=== PATIENT | female | born 1955 | race Two or more races ===

== ENCOUNTER 2023-11-01 10:40 | Emergency (ER) | payer MEDICARE, OTHER ==
[~2023-11-01] VITALS: Ht 160 cm; Wt 67.6 kg
--- NOTE | 2023-11-01 11:00 | NUR ---
[facility] FROM [facility] FOR PSYCH EVALUATION. PATIENT SI WITH PLAN TO HARM SELF BY NOT EATING. A/O X 3, ABLE TO MAKE NEEDS KNOWN, TOLERATING WELL ON ROOM AIR. WILL CONTINUE TO MONITOR.
[2023-11-01 11:54] LABS: BASOPHILS % (AUTO) 0.3 % (0.0-2.0); EOSINOPHILS # (AUTO) 0.9 K/uL (0.0-0.7); EOSINOPHILS % (AUTO) 10.4 % (0.0-6.0); HEMATOCRIT 40 % (33-45); HEMOGLOBIN 13.2 g/dL (11.5-14.8); LYMPHOCYTES # (AUTO) 1.5 K/uL (0.8-4.8); LYMPHOCYTES % (AUTO) 17.2 % (20.0-44.0); MEAN CORPUSCULAR HEMOGLOBIN 31 PG (26.0-33.0); MEAN CORPUSCULAR HGB CONC 33 g/dl (31.0-36.0); MEAN CORPUSCULAR VOLUME 95 fL (82-100); MONOCYTES # (AUTO) 0.6 K/uL (0.1-1.30); MONOCYTES % (AUTO) 6.9 % (2.0-12.0); NEUTROPHILS # (AUTO) 5.6 K/uL (1.8-8.9); NEUTROPHILS % (AUTO) 65.2 % (43.0-81.0); PLATELET COUNT (AUTO) 334 K/uL (150-450); RED BLOOD CELL COUNT(AUTO) 4.22 MIL/uL (4.0-5.2); RED CELL DISTRIBUTION WIDTH 13.5 % (11.5-15.0); WHITE BLOOD COUNT (AUTO) 8.7 K/uL (4.3-11.0)
--- NOTE | 2023-11-01 12:00 | NUR ---
urine collected via straight catheter, sent sample to lab
[2023-11-01 12:03] LABS: CALCIUM, SERUM 9.3 mg/dL (8.5-10.1); CARBON DIOXIDE 23 mmol/L (21-32); CHLORIDE 104 mmol/L (98-107); CREATININE 0.9 mg/dL (0.6-1.3); GLUCOSE 72 mg/dL (74-106); POTASSIUM 4.4 mmol/L (3.5-5.1); SODIUM SERUM 138 mmol/L (136-145); UREA NITROGEN, BLOOD 17 mg/dL (7-18)
[2023-11-01 12:09] LABS: ALANINE AMINOTRANSFERASE 19 U/L (12-78); ALBUMIN 3.2 g/dL (3.4-5.0); ALKALINE PHOSPHATASE 82 U/L (46-116); ASPARTATE AMINOTRANSFERASE 12 U/L (15-37); BILIRUBIN,DIRECT 0.1 mg/dL (0.0-0.2); BILIRUBIN,TOTAL 0.4 mg/dL (0.2-1.0); TOTAL PROTEIN, SERUM 6.7 g/dL (6.4-8.2)
[2023-11-01 12:11] LABS: ACETAMINOPHEN <10 ug/ml (10-30); ALCOHOL, BLOOD < 3 mg/dL (0-10); SALICYLATE 1.5 mg/dL (2.8-20.0)
[2023-11-01] MEDS ORDERED: KETOROLAC TROMETHAMINE INJ 30 MG/ML VIAL IM ONE (12:30)
[2023-11-01 12:40] LABS: APPEARANCE,URINE SLIGHTLY CLOUDY (CLEAR); BILIRUBIN,URINE NEGATIVE (NEGATIVE); BLOOD, URINE NEGATIVE Ery/uL (NEGATIVE); COLOR,URINE YELLOW (YELLOW); KETONES,URINE NEGATIVE (NEGATIVE); LEUKOCYTE ESTERASE ,URINE 3+ (NEGATIVE); NITRITE, URINE POSITIVE (NEGATIVE); PH,URINE 5.5 (5.0-8.0); PROTEIN,URINE NEGATIVE (NEGATIVE); UGLUCOSE NEGATIVE (NEGATIVE); UROBILINOGEN,URINE 0.2 EU/dL (0.2)
[2023-11-01 12:41] LABS: ADD URINE CULTURE YES; BACTERIA,URINE Moderate /HPF (None Seen); SQUAMOUS EPITHELIAL CELL,UR Rare /HPF (None Seen); WBC,URINE 21-50 /HPF (0-3)
[2023-11-01 12:49] LABS: AMPHETAMINE, URINE NEGATIVE (NEGATIVE); BARBITURATE, URINE NEGATIVE (NEGATIVE); BENZODIAZEPINE, URINE NEGATIVE (NEGATIVE); CANNABINOID, URINE NEGATIVE (NEGATIVE); COCCAINE, URINE NEGATIVE (NEGATIVE); OPIATE, URINE NEGATIVE (NEGATIVE); PHENCYCLIDINE SCREEN,URINE NEGATIVE (NEGATIVE)
[2023-11-01] MEDS ORDERED: CEPHALEXIN MONOHYDRATE 500 MG CAPSULE PO ONE (13:37)
[2023-11-01] MEDS: CEPHALEXIN MONOHYDRATE 500 MG CAPSULE PO ONE (13:39)
--- NOTE | 2023-11-01 13:39 | NUR ---
Medicated as ordered. SEE eMAR
--- NOTE | 2023-11-01 19:02 | NUR ---
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
--- NOTE | 2023-11-01 22:15 | NUR ---
kieran scott at bedside for eval
--- NOTE | 2023-11-01 22:45 | NUR ---
Medicated as ordered. Zoloft 25mg PO
[2023-11-01] MEDS: SERTRALINE HCL 25 MG TABLET PO SCH (23:00)
[2023-11-01] MEDS: SERTRALINE HCL 25 MG TABLET ONE (23:53)
--- NOTE | 2023-11-02 07:01 | NUR ---
apa at bedside for transport back to facility
[2023-11-02 07:37] VITALS: BP 135/76; TEMP 98.2; O2SAT 100
== END 2023-11-02 07:37 ==
LOC: ER 11:11
DX: R45.851 Suicidal ideations (principal); N39.0 Urinary tract infection, site not specified; I10 Essential (primary) hypertension; F32.A Depression, unspecified; E11.9 Type 2 diabetes mellitus without complications; Z20.822 Contact with and (suspected) exposure to COVID-19
CPT/HCPCS: 36415; 80048-TC; 80076-TC; 81001; 85025-TC; 87086-TC; G0480

== ENCOUNTER 2024-05-03 14:11 | Inpatient (IN) | payer MEDICARE, OTHER ==
[~2024-05-03] VITALS: Ht 167.6 cm; Wt 69.9 kg
[2024-05-03 14:58] LABS: BASOPHILS # (AUTO) 0.1 K/uL (0.0-0.2); BASOPHILS % (AUTO) 0.7 % (0.0-2.0); EOSINOPHILS # (AUTO) 0.9 K/uL (0.0-0.7); EOSINOPHILS % (AUTO) 10.2 % (0.0-6.0); HEMATOCRIT 41 % (33-45); HEMOGLOBIN 13.7 g/dL (11.5-14.8); LYMPHOCYTES # (AUTO) 1.6 K/uL (0.8-4.8); LYMPHOCYTES % (AUTO) 18.7 % (20.0-44.0); MEAN CORPUSCULAR HEMOGLOBIN 32 PG (26.0-33.0); MEAN CORPUSCULAR HGB CONC 34 g/dl (31.0-36.0); MEAN CORPUSCULAR VOLUME 95 fL (82-100); MONOCYTES # (AUTO) 0.6 K/uL (0.1-1.30); MONOCYTES % (AUTO) 6.6 % (2.0-12.0); NEUTROPHILS # (AUTO) 5.5 K/uL (1.8-8.9); NEUTROPHILS % (AUTO) 63.8 % (43.0-81.0); PLATELET COUNT (AUTO) 395 K/uL (150-450); RED BLOOD CELL COUNT(AUTO) 4.26 MIL/uL (4.0-5.2); WHITE BLOOD COUNT (AUTO) 8.7 K/uL (4.3-11.0)
[2024-05-03] MEDS: IV NS 0.9% 1,000 ML BAG IV ONE ×2 (15:06→17:12)
[2024-05-03 15:16] LABS: INR 0.97 (0.91-1.10); PARTIAL THROMBOPLASTIN TIME 23.7 SEC (24.3-34.3); PROTHROMBIN TIME 10.3 SECS (9.2-11.1)
[2024-05-03 15:23] LABS: ALANINE AMINOTRANSFERASE 19 U/L (12-78); ALBUMIN 3.7 g/dL (3.4-5.0); ALKALINE PHOSPHATASE 85 U/L (46-116); ASPARTATE AMINOTRANSFERASE 15 U/L (15-37); BILIRUBIN,DIRECT 0.1 mg/dL (0.0-0.2); BILIRUBIN,TOTAL 0.3 mg/dL (0.2-1.0); CALCIUM, SERUM 9.5 mg/dL (8.5-10.1); CARBON DIOXIDE 25 mmol/L (21-32); CHLORIDE 105 mmol/L (98-107); GLUCOSE 94 mg/dL (74-106); POTASSIUM 4.3 mmol/L (3.5-5.1); SODIUM SERUM 140 mmol/L (136-145); TOTAL PROTEIN, SERUM 7.4 g/dL (6.4-8.2); UREA NITROGEN, BLOOD 20 mg/dL (7-18)
[2024-05-03 15:29] LABS: LACTIC ACID 4.5 mmol/L (0.4-2.0)
[2024-05-03] MEDS ORDERED: MAGNESIUM HYDROXIDE 30 ML UDC PO PRN (17:00)
[2024-05-03] MEDS ORDERED: ONDANSETRON HCL/PF 4 MG/2 ML VIAL IVP PRN (17:00)
[2024-05-03] MEDS ORDERED: hydrALAZINE HCL IV 20 MG VIAL IV PRN (17:00)
[2024-05-03] MEDS ORDERED: MAG HYDROX/AL HYDROX/SIMETH 30 ML UDC PO PRN (17:00)
[2024-05-03] MEDS ORDERED: MORPHINE SULFATE INJ 2 MG/ML DISP.SYRIN IV PRN (17:00)
[2024-05-03] MEDS ORDERED: PIPERACI/TAZO 3.375GM/D5W 50ML PB IV ONE (17:02)
[2024-05-03] MEDS: PIPERACILLIN /TAZOBACTAM 3.375 G in IV D5W 50 ML IV ONE (17:14)
[2024-05-03 17:32] LABS: APPEARANCE,URINE CLEAR (CLEAR); BILIRUBIN,URINE NEGATIVE (NEGATIVE); BLOOD, URINE NEGATIVE Ery/uL (NEGATIVE); COLOR,URINE OTHER (YELLOW); KETONES,URINE NEGATIVE (NEGATIVE); LEUKOCYTE ESTERASE ,URINE TRACE (NEGATIVE); NITRITE, URINE NEGATIVE (NEGATIVE); PROTEIN,URINE NEGATIVE (NEGATIVE); UGLUCOSE NEGATIVE (NEGATIVE); UROBILINOGEN,URINE 0.2 EU/dL (0.2)
[2024-05-03 17:45] LABS: ADD URINE CULTURE YES; BACTERIA,URINE Few /HPF (None Seen); RBC,URINE 0-2 /HPF (0-2)
[2024-05-03] MEDS ORDERED: GLIP5TAB13 PO (17:55)
[2024-05-03] MEDS ORDERED: POTA20PA3 PO (17:55)
[2024-05-03] MEDS ORDERED: METF-442 PO (17:55)
[2024-05-03] MEDS ORDERED: ATOR20TA PO (17:55)
[2024-05-03] MEDS ORDERED: MAGN400O6 PO (17:55)
[2024-05-03] MEDS ORDERED: MELA5TAB PO (17:55)
[2024-05-03] MEDS ORDERED: ATEN25TA PO (17:55)
[2024-05-03] MEDS ORDERED: ASPI-1169 PO (17:55)
[2024-05-03] MEDS ORDERED: SERT50TA PO (17:55)
[2024-05-03] MEDS ORDERED: ACET-73 PO (17:55)
[2024-05-03] MEDS ORDERED: LAMO25TA5 PO (17:55)
[2024-05-03] MEDS ORDERED: LISI10TA29 PO (17:55)
[2024-05-03] MEDS ORDERED: MULT-213 PO (17:55)
[2024-05-03] MEDS ORDERED: DIPH25CA83 PO (17:55)
[2024-05-03] MEDS ORDERED: CRAN300T PO (17:55)
[2024-05-03] MEDS ORDERED: METF-440 PO (17:55)
[2024-05-03] MEDS ORDERED: DOCU100C36 PO (17:55)
[2024-05-03] MEDS ORDERED: BISA10SU11 RC (17:55)
[2024-05-03] MEDS ORDERED: NA P133E RC (17:55)
[2024-05-03] MEDS ORDERED: ACET325T53 PO (17:55)
[2024-05-03] MEDS ORDERED: GLUC1KIT IM (17:55)
[2024-05-03] MEDS ORDERED: DEXT38GE12 PO (17:55)
[2024-05-03] MEDS ORDERED: POLY15DR31 EACHEYE (17:55)
[2024-05-03] MEDS ORDERED: DEXTROSE 50%-WATER 50 ML DISP.SYRIN IV PRN (18:30)
[2024-05-03 20:00] VITALS: BP 155/95; TEMP 98.2; O2SAT 97
[2024-05-03] MEDS: INSULIN REGULAR, HUMAN 100 UNIT/ML 3 ML VIAL SQ PRN (20:07)
[2024-05-03] MEDS: BLOOD SUGAR DIAGNOSTIC 1 EACH STRIP IN SCH (20:07)
[2024-05-03] MEDS: CEFTRIAXONE 1 G in IV D5W 50 ML IV SCH (20:45)
[2024-05-03] MEDS: DOCUSATE SODIUM LIQ 100 MG/10 ML UDC PO SCH (20:51)
[2024-05-03] MEDS: HEPARIN SODIUM, PORCINE 5000 UNITS/1 ML VIAL SQ SCH (20:52)
[2024-05-03] MEDS: ATORVASTATIN 10 MG TABLET PO SCH (21:15)
[2024-05-04 04:00] VITALS: BP 111/94; TEMP 98.2; O2SAT 95
[2024-05-04 07:22] LABS: BASOPHILS # (AUTO) 0.1 K/uL (0.0-0.2); BASOPHILS % (AUTO) 0.7 % (0.0-2.0); EOSINOPHILS # (AUTO) 0.8 K/uL (0.0-0.7); EOSINOPHILS % (AUTO) 8.6 % (0.0-6.0); HEMATOCRIT 40 % (33-45); HEMOGLOBIN 13.3 g/dL (11.5-14.8); LYMPHOCYTES # (AUTO) 1.5 K/uL (0.8-4.8); LYMPHOCYTES % (AUTO) 17.3 % (20.0-44.0); MEAN CORPUSCULAR HEMOGLOBIN 31 PG (26.0-33.0); MEAN CORPUSCULAR HGB CONC 33 g/dl (31.0-36.0); MEAN CORPUSCULAR VOLUME 94 fL (82-100); MONOCYTES # (AUTO) 0.6 K/uL (0.1-1.30); MONOCYTES % (AUTO) 6.8 % (2.0-12.0); NEUTROPHILS # (AUTO) 5.9 K/uL (1.8-8.9); NEUTROPHILS % (AUTO) 66.6 % (43.0-81.0); PLATELET COUNT (AUTO) 354 K/uL (150-450); RED BLOOD CELL COUNT(AUTO) 4.27 MIL/uL (4.0-5.2); RED CELL DISTRIBUTION WIDTH 13.7 % (11.5-15.0); WHITE BLOOD COUNT (AUTO) 8.8 K/uL (4.3-11.0)
[2024-05-04 07:50] LABS: ALBUMIN 3.5 g/dL (3.4-5.0); BILIRUBIN,TOTAL 0.5 mg/dL (0.2-1.0); CALCIUM, SERUM 8.9 mg/dL (8.5-10.1); CREATININE 0.7 mg/dL (0.6-1.3); MAGNESIUM 1.4 mg/dL (1.8-2.4); PHOSPHORUS 2.5 mg/dL (2.5-4.9); POTASSIUM 3.5 mmol/L (3.5-5.1); TOTAL PROTEIN, SERUM 6.9 g/dL (6.4-8.2)
[2024-05-04 08:00] VITALS: BP 121/77; TEMP 98.2; O2SAT 99
[2024-05-04] MEDS: ATENOLOL 25 MG TABLET PO SCH (09:00)
[2024-05-04] MEDS: SERTRALINE HCL 50 MG TABLET PO SCH (09:20)
[2024-05-04] MEDS: POLYETHYLENE GLYCOL 3350 17 GM POWD.PACK PO SCH (09:20)
[2024-05-04] MEDS: LamoTRIgine 25 MG TABLET PO SCH (09:20)
[2024-05-04] MEDS: LISINOPRIL (10MG) 10 MG TABLET PO SCH (09:21)
[2024-05-04] MEDS: ASPIRIN 81 MG TAB.CHEW PO SCH (09:21)
[2024-05-04] MEDS: MAGNESIUM OXIDE 400 MG TABLET PO SCH (12:31)
[2024-05-04 16:00] VITALS: BP 121/67; TEMP 97.5; O2SAT 98
[2024-05-04 20:00] VITALS: BP 119/79; TEMP 99; O2SAT 95
[2024-05-04] MEDS: ACETAMINOPHEN 325 MG TABLET PO PRN (21:28)
[2024-05-05 04:00] VITALS: BP 140/90; TEMP 98.6; O2SAT 97
[2024-05-05 07:18] LABS: BASOPHILS # (AUTO) 0.1 K/uL (0.0-0.2); EOSINOPHILS # (AUTO) 0.7 K/uL (0.0-0.7); EOSINOPHILS % (AUTO) 9.1 % (0.0-6.0); HEMATOCRIT 38 % (33-45); HEMOGLOBIN 12.8 g/dL (11.5-14.8); LYMPHOCYTES # (AUTO) 1.6 K/uL (0.8-4.8); LYMPHOCYTES % (AUTO) 21.7 % (20.0-44.0); MEAN CORPUSCULAR HEMOGLOBIN 32 PG (26.0-33.0); MEAN CORPUSCULAR HGB CONC 34 g/dl (31.0-36.0); MEAN CORPUSCULAR VOLUME 94 fL (82-100); MONOCYTES # (AUTO) 0.6 K/uL (0.1-1.30); MONOCYTES % (AUTO) 7.7 % (2.0-12.0); NEUTROPHILS # (AUTO) 4.5 K/uL (1.8-8.9); NEUTROPHILS % (AUTO) 60.5 % (43.0-81.0); PLATELET COUNT (AUTO) 350 K/uL (150-450); RED BLOOD CELL COUNT(AUTO) 4.07 MIL/uL (4.0-5.2); RED CELL DISTRIBUTION WIDTH 13.5 % (11.5-15.0); WHITE BLOOD COUNT (AUTO) 7.5 K/uL (4.3-11.0)
[2024-05-05 07:45] LABS: CALCIUM, SERUM 8.9 mg/dL (8.5-10.1); CREATININE 1.1 mg/dL (0.6-1.3); MAGNESIUM 2.2 mg/dL (1.8-2.4); PHOSPHORUS 3.5 mg/dL (2.5-4.9); POTASSIUM 3.8 mmol/L (3.5-5.1)
[2024-05-05 08:00] VITALS: BP 115/83; TEMP 97.7; O2SAT 97
[2024-05-05 16:00] VITALS: BP 115/83; TEMP 97.7; O2SAT 97
[2024-05-05 20:00] VITALS: BP 144/67; TEMP 97.7; O2SAT 95
[2024-05-06 04:00] VITALS: BP 159/80; TEMP 97.7; O2SAT 97
[2024-05-06 07:38] LABS: CALCIUM, SERUM 8.7 mg/dL (8.5-10.1); CREATININE 0.7 mg/dL (0.6-1.3); POTASSIUM 4.1 mmol/L (3.5-5.1)
[2024-05-06 08:00] VITALS: BP 173/78; TEMP 97.5; O2SAT 97
[2024-05-06 09:34] VITALS: BP 170/72
[2024-05-06] MEDS: DOCUSATE SODIUM 100 MG CAPSULE PO SCH (09:35)
[2024-05-06] MEDS ORDERED: CEFT1VIA15 IV (12:39)
== END 2024-05-06 15:25 | DRG 689 ==
LOC: ER 14:15 → TELE-TD 18:15 → MEDSG1 19:41
PROVIDERS: ADMIT Internal Medicine; ATTEND Internal Medicine
DX: N39.0 Urinary tract infection, site not specified (principal); G93.41 Metabolic encephalopathy; R53.2 Functional quadriplegia; E87.20 Acidosis, unspecified; F03.93 Unspecified dementia, unspecified severity, with mood disturbance; B96.89 Other specified bacterial agents as the cause of diseases classified elsewhere; M24.572 Contracture, left ankle; M24.571 Contracture, right ankle; E78.5 Hyperlipidemia, unspecified; Z85.3 Personal history of malignant neoplasm of breast; F31.9 Bipolar disorder, unspecified; M21.371 Foot drop, right foot; M21.372 Foot drop, left foot; Z74.01 Bed confinement status; Z79.84 Long term (current) use of oral hypoglycemic drugs; Z79.899 Other long term (current) drug therapy; E11.9 Type 2 diabetes mellitus without complications; Z90.11 Acquired absence of right breast and nipple; I10 Essential (primary) hypertension; D32.9 Benign neoplasm of meninges, unspecified
CPT/HCPCS: 36415; 70450-TC; 71045-TC; 80048-TC; 80053-TC; 80076-TC; 81001; 82962-TC; 83605-TC; 83735-TC; 84100-TC; 84484-TC; 85025-TC; 85730-TC; 87040-TC; 87081-TC; 87086-TC; 87186-TC; A4223; G0378; J0696; J1644; J1815; J2543; J7030; J7042; J7050; J7060